=== PATIENT | male | born 1960 | race Caucasian/White ===

== ENCOUNTER 2022-10-04 04:14 | Day surgery (SDC) | payer OTHER ==
[2022-10-03 09:49] VITALS: BMI 25.1
[2022-10-04 10:31] VITALS: TEMP 97.9
[2022-10-04 11:08] VITALS: BP 114/73; PULSE 60; RESP 17
== END 2022-10-04 11:15 | disposition home or self-care (01) ==
LOC: JASU-ENDO 04:14
PROVIDERS: ATTEND Internal Medicine Gastroenterology
PROC: 0DBP8ZX Excision of Rectum, Via Natural or Artificial Opening Endoscopic, Diagnostic (ICD-10-PCS; principal; 2022-10-04 10:00)
DX: Z12.11 Encounter for screening for malignant neoplasm of colon (principal); D12.8 Benign neoplasm of rectum; K57.30 Diverticulosis of large intestine without perforation or abscess without bleeding; K64.8 Other hemorrhoids
CPT/HCPCS: 88305-TC